=== PATIENT | female | born 1960 | race African-American/Black ===

== ENCOUNTER 2017-03-01 16:57 | Emergency (ER) | payer OTHER ==
[~2017-03-01] VITALS: Ht 175.3 cm; Wt 68.0 kg
[2017-03-01] MEDS ORDERED: PRED20TA PO (17:54)
--- NOTE | 2017-03-01 17:59 | PHYS DOC ---
General Chief Complaint: EYE PROBLEMS Stated Complaint: EYE PROBLEMS Time Seen by MD: 17:27 Source: patient Exam Limitations: no limitations Problems: History of Present Illness Initial Comments Patient is a 56-year-old female who comes to the ED complaining of left I swelling. Patient states that last night she was outdoors and wrote her left leg after a mosquito bite. She states that she then rubbed her left eye. She denies any eye pain foreign body vision change tearing or matting but states she woke up this morning with mild swelling around her eye. She is able to open her eye fully the conjunctiva is not injected and other than the mild swelling patient denies any symptoms. Patient states that she's having allergy symptoms with her left eye. Patient is new to this facility, her speech is tangential and erratic often repeating herself." I'm not crazy, well I am a little. I'm a little paranoid that I have reason to be. I like female doctors. Well I'm not a lesbian or anything but..." It is hard to keep the patient on subject but basically other than the slight swelling patient denies complaints. Patient denies tetracaine and fluorescein evaluation stating as necessary. Visual acuity: 20/20 left eye, 20/15 right eye, 20/20 bilaterally Timing/Duration: yesterday Severity: mild Location: eye (L) Prearrival Treatment: no prearrival treatment Modifying Factors: improves with other Associated Symptoms: other Allergies: Coded Allergies: No Known Drug Allergies (Unverified , 03/01/17) Past Medical History Medical History: no pertinent history Surgical History: noncontributory Social History Smoker: cigarettes Alcohol: occasionally Drugs: none Constitutional: denies chills, denies diaphoresis, denies fever, denies malaise Eyes: see HPI Ears: denies dizziness, denies pain, denies tinnitus Nose: denies congestion, denies epistaxis, denies pain Throat: denies pain, denies neck stiffness, denies hoarse, denies painful swallowing Respiratory: denies cough, denies shortness of breath, denies wheezing Cardiovascular: denies chest pain, denies palpitations, denies syncope Gastrointestinal: denies diarrhea, denies nausea, denies vomiting Physical Exam General Appearance: WD/WN, no apparent distress Eyes: right eye normal inspection, left eye other (very slight periorbital swelling, painless and full extraocular motion the conjunctiva is not injected she can open her eye fully there is no tearing or discharge. Patient again refuses tetracaine/fluorescein eval), bilateral eye PERRL, bilateral eye EOMI Nose: normal inspection Mouth/Throat: normal mouth inspection, pharynx normal Neck: non-tender, supple Cardiovascular/Respiratory: normal peripheral pulses, normal breath sounds, no respiratory distress Neurologic/Psychiatric: hepatology physician II-XII nml as tested, alert, oriented x 3, other ( tangential rambling speech, appears anxious as if on stimulant medications) Skin: normal color, warm/dry Orders, Labs, Meds I discussed empiric treatment for allergies as the only course of treatment patient is agreeable to. She agrees to follow-up with her doctor as scheduled tomorrow morning. Advised to stop smoking. Departure Time of Disposition: 17:55 Disposition: 01 HOME, SELF-CARE Diagnosis: allergic reaction nos Condition: GOOD Patient Instructions: Allergy Testing for Children Additional Instructions: Activity as tolerated. Keep foreign bodies and other substances out of your eyes as best you are able. [id number] Pepcid and Benadryl while still symptomatic. Prescription: prednisone, take as directed. Follow up with your doctor tomorrow as scheduled for recheck. Return to ED with new or changing symptoms. MAKENZIE CABRERA DO Mar 01, 2017 17:58
[2017-03-01] MEDS ORDERED: TETRACAINE 0.5% OPHTH SOLUTION 4ML BOTTLE. OS ONE (18:00)
[2017-03-01 18:03] VITALS: BP 159/87
== END 2017-03-01 18:04 | disposition home or self-care (01) ==
LOC: ER 16:57
DX: T78.40XA Allergy, unspecified, initial encounter (principal); F17.210 Nicotine dependence, cigarettes, uncomplicated; X58.XXXA Exposure to other specified factors, initial encounter
CPT/HCPCS: 99283

== ENCOUNTER → 2017-03-02 | Outpatient (CLI) | payer OTHER ==
[2017-03-01 18:03] VITALS: BP 159/87
[~2017-03-02] MED LIST: PRED20TA PO
--- NOTE | 2017-03-02 15:57 | RAD ---
CHEST PA LATERAL Technique: PA and lateral views of the chest were obtained. Clinical History: CHRONIC COUGH FOR SEVERAL MONTHS Comparison: None. Findings: The heart and pulmonary vasculature appear within normal limits. The lungs are clear. The pleural margins are clear. Mild degenerative changes thoracic spine. Impression: No acute chest process is seen.
== END | disposition home or self-care (01) ==
LOC: DXRADRC 12:47
PROVIDERS: ATTEND Family Medicine
DX: R05 Cough (principal); M47.894 Other spondylosis, thoracic region
CPT/HCPCS: 71020

== ENCOUNTER 2017-07-12 11:51 | Emergency (ER) | payer OTHER ==
[~2017-07-12] VITALS: Ht 175.3 cm; Wt 65.8 kg
[2017-07-12] MEDS ORDERED: CEPH-264 PO (12:19)
[2017-07-12] MEDS ORDERED: TRAM-48 PO (12:19)
--- NOTE | 2017-07-12 12:19 | PHYS DOC ---
Past History Past Medical History: No Pertinent History, Hypertension Past Surgical History: No Surgical History Alcohol Use: Occasionally Drug Use: None Adult General Chief Complaint Chief Complaint: DENTAL PROBLEM HPI HPI Patient is a 49-year-old female who presents here today secondary to pain to her teeth as well as swelling to her left upper cheek. Patient reports that she has had a dentist that she is not happy with the dentist preceded not remove all her teeth. Patient reports that she is currently in the process of obtaining another dentist. Patient has any fevers shakes chills nausea vomiting diarrhea. Review of Systems Review of Systems Review of systems: Constitutional: Denies fever or chills Eyes: Denies change in visual acuity, redness, or eye pain HENT: Denies nasal congestion or sore throat Respiratory: Denies cough or shortness of breath All other systems were reviewed and found to be within normal limits, except as documented in this note. Physical exam: Constitutional: Well developed, well nourished, no acute distress, non-toxic appearance. HENT: Normocephalic, atraumatic, bilateral external ears normal, nose normal. Eyes: PERRLA, EOMI, conjunctiva normal, no discharge. Neck: Normal range of motion, no tenderness, supple, no stridor. Cardiovascular: Heart rate regular rhythm, Lungs & Thorax: Bilateral breath sounds clear to auscultation Abdomen: No abdominal distention. Skin: Warm, dry, no erythema, no rash. Back: Normal spinal curvature Extremities: No tenderness, no cyanosis, no clubbing, ROM intact, no edema. Neurologic: Alert and oriented X 3, normal motor function, normal sensory function, no focal deficits noted. Psychologic: Affect normal, judgement normal, mood normal. Patient's ER physical exam was most remarkable: Soft tissue swelling to her left cheek with soft tissue fullness to her left upper premolar molar gum. No fluctuance no trismus Assessment and plan: 1. Micro-dental abscess with dental pain and soft tissue swelling. Patient will get started on penicillin Ultram and ibuprofen assist her with her pain. Patient's been encouraged to follow-up with a dentist within the next 1-2 days. Allergies Allergies Allergies Coded Allergies Type Severity Reaction Last Updated Verified No Known Drug Allergies 03/01/17 No Physical Exam Physical Exam Constitutional: Well developed, well nourished, no acute distress, non-toxic appearance. [] HENT: Normocephalic, atraumatic, bilateral external ears normal, oropharynx moist, no oral exudates, nose normal. [] Eyes: PERRLA, EOMI, conjunctiva normal, no discharge. [] Neck: Normal range of motion, no tenderness, supple, no stridor. [] Cardiovascular:Heart rate regular rhythm, no murmur [] Lungs & Thorax: Bilateral breath sounds clear to auscultation [] Abdomen: Bowel sounds normal, soft, no tenderness, no masses, no pulsatile masses. [] Skin: Warm, dry, no erythema, no rash. [] Back: No tenderness, no CVA tenderness. [] Extremities: No tenderness, no cyanosis, no clubbing, ROM intact, no edema. [] Neurologic: Alert and oriented X 3, normal motor function, normal sensory function, no focal deficits noted. [] Psychologic: Affect normal, judgement normal, mood normal. [] Current Patient Data Vital Signs Vital Signs Date Time Temp Pulse Resp B/P (MAP) Pulse Ox O2 Delivery O2 Flow Rate FiO2 07/12/17 12:12 98.1 90 22 96 Room Air EKG EKG [] Radiology/Procedures Radiology/Procedures [] Course & Med Decision Making Course & Med Decision Making Pertinent Labs and Imaging studies reviewed. (See chart for details) [] Dragon Disclaimer Dragon Disclaimer This electronic medical record was generated, in whole or in part, using a voice recognition dictation system. Departure Departure: Impression: Primary Impression: Dental infection Additional Impression: Dental caries Disposition: 01 HOME, SELF-CARE Condition: IMPROVED Referrals: DEQUAN NEGRON APRN (PCP) Patient Instructions: Dental Abscess, Dental Caries, Toothache-Brief Additional Instructions: Please follow up with a dentist in one to 2 days for reevaluation and permanent management Scripts Tramadol Hcl (ULTRAM) 50 Mg Tablet 50 MG PO PRN Q6HRS Y for PAIN, #20 TAB Prov: VALERIE RADFORD MD 07/12/17 Cephalexin (KEFLEX) 500 Mg Capsule 1 CAP PO TID, #30 CAP Prov: VALERIE RADFORD MD 07/12/17 Problem Qualifiers VALERIE RADFORD MD Jul 12, 2017 12:19
[2017-07-12 12:34] VITALS: BP 191/99
== END 2017-07-12 12:34 | disposition home or self-care (01) ==
LOC: ER 11:51
DX: K02.9 Dental caries, unspecified (principal); K04.7 Periapical abscess without sinus; I10 Essential (primary) hypertension
CPT/HCPCS: 99283

== ENCOUNTER 2019-07-23 15:11 | Emergency (ER) | payer OTHER ==
[~2019-07-23] VITALS: Ht 175.3 cm; Wt 68.0 kg
[~2019-07-23 15:11] MED LIST changes: +CEPH-264 PO; +TRAM-48 PO
[2019-07-23 15:29] VITALS: BP 131/93
[2019-07-23] MEDS ORDERED: CHLO15MO2 PO (15:44)
[2019-07-23] MEDS ORDERED: AMOX1TAB61 PO (15:44)
[2019-07-23] MEDS ORDERED: PRED20TA PO (15:44)
[2019-07-23] MEDS ORDERED: DIPH25CA58 PO (15:44)
--- NOTE | 2019-07-23 15:44 | PHYS DOC ---
Past History Past Medical History: Hypertension Past Surgical History: No Surgical History Alcohol Use: Occasionally Drug Use: None Adult General Chief Complaint Chief Complaint: FACE PAIN HPI HPI Patient is a [age] year old [sex] who presents with [] Review of Systems Review of Systems Constitutional: Denies fever or chills [] Eyes: Denies change in visual acuity, redness, or eye pain [] HENT: Denies nasal congestion or sore throat [] Respiratory: Denies cough or shortness of breath [] Cardiovascular: No additional information not addressed in HPI [] GI: Denies abdominal pain, nausea, vomiting, bloody stools or diarrhea [] : Denies dysuria or hematuria [] Musculoskeletal: Denies back pain or joint pain [] Integument: Denies rash or skin lesions [] Neurologic: Denies headache, focal weakness or sensory changes [] Endocrine: Denies polyuria or polydipsia [] All other systems were reviewed and found to be within normal limits, except as documented in this note. Allergies Allergies Allergies Coded Allergies Type Severity Reaction Last Updated Verified No Known Drug Allergies 03/01/17 No Physical Exam Physical Exam Constitutional: Well developed, well nourished, no acute distress, non-toxic appearance. [] HENT: Normocephalic, atraumatic, bilateral external ears normal, oropharynx moist, no oral exudates, nose normal. [] Eyes: PERRLA, EOMI, conjunctiva normal, no discharge. [] Neck: Normal range of motion, no tenderness, supple, no stridor. [] Cardiovascular:Heart rate regular rhythm, no murmur [] Lungs & Thorax: Bilateral breath sounds clear to auscultation [] Abdomen: Bowel sounds normal, soft, no tenderness, no masses, no pulsatile masses. [] Skin: Warm, dry, no erythema, no rash. [] Back: No tenderness, no CVA tenderness. [] Extremities: No tenderness, no cyanosis, no clubbing, ROM intact, no edema. [] Neurologic: Alert and oriented X 3, normal motor function, normal sensory function, no focal deficits noted. [] Psychologic: Affect normal, judgement normal, mood normal. [] Current Patient Data Vital Signs Vital Signs Date Time Temp Pulse Resp B/P (MAP) Pulse Ox O2 Delivery O2 Flow Rate FiO2 07/23/19 15:29 98.3 98 16 131/93 (106) 98 Room Air EKG EKG [] Radiology/Procedures Radiology/Procedures [] Course & Med Decision Making Course & Med Decision Making Pertinent Labs and Imaging studies reviewed. (See chart for details) [] Dragon Disclaimer Dragon Disclaimer This electronic medical record was generated, in whole or in part, using a voice recognition dictation system. Departure Departure: Impression: Primary Impression: Cervical lymphadenopathy Additional Impressions: URI (upper respiratory infection) Dental caries Contact dermatitis Disposition: HOME, SELF-CARE Condition: STABLE Referrals: PCP,NO (PCP) Patient Instructions: Contact Dermatitis, [id number], Dental Caries-Brief, Upper Respiratory Infection, Adult, [id number] Scripts Diphenhydramine Hcl (BENADRYL) 25 Mg Capsule 1 CAP PO Q4-6HRS PRN for ITCHING, #30 CAP 0 Refills Prov: NADYA MENA DO 07/23/19 Chlorhexidine Gluconate (PERIDEX) 15 Ml Mouthwash 15 ML PO BID for Dental Caries, #500 ML 0 Refills Prov: NADYA MENA DO 07/23/19 Prednisone (PREDNISONE) 20 Mg Tablet 2 TAB PO DAILY for Rash/Swelling, #8 TAB Start this prescription tomorrow, 07/24/19 Prov: NADYA MENA DO 07/23/19 Amoxicillin/Potassium Clav (AUGMENTIN 875-125 TABLET) 1 Each Tablet 1 TAB PO BID for Infection for 7 Days, #14 TAB 0 Refills Prov: NADYA MENA DO 07/23/19 Problem Qualifiers Additional Impressions: URI (upper respiratory infection) URI type: unspecified URI Qualified Codes: J06.9 - Acute upper respiratory infection, unspecified Contact dermatitis Contact dermatitis type: allergic Contact dermatitis trigger: metal Qualified Codes: L23.0 - Allergic contact dermatitis due to metals NADYA MENA DO Jul 23, 2019 15:44
[2019-07-23] MEDS ORDERED: AMOXICILLIN/K CLAV 875/125MG TABLET. PO ONE (15:45)
[2019-07-23] MEDS ORDERED: DEXAMETHASONE 4 MG TABLET PO ONE (15:45)
== END 2019-07-23 15:52 | disposition home or self-care (01) ==
LOC: ER 15:11
DX: R59.0 Localized enlarged lymph nodes (principal); J06.9 Acute upper respiratory infection, unspecified; K02.9 Dental caries, unspecified; L25.9 Unspecified contact dermatitis, unspecified cause; I10 Essential (primary) hypertension
CPT/HCPCS: 99283; J8540

== ENCOUNTER 2019-11-15 18:06 | Emergency (ER) | payer OTHER ==
[~2019-11-15] VITALS: Ht 175.3 cm; Wt 70.0 kg
[~2019-11-15 18:06] MED LIST changes: +AMOX1TAB61 PO; +CHLO15MO2 PO; +DIPH25CA58 PO
--- NOTE | 2019-11-15 18:15 | PHYS DOC ---
Past History Past Medical History: Anxiety, Bronchitis, Hypertension Past Medical History Hx of dental caries Past Surgical History: No Surgical History Smoking: Cigarettes Alcohol Use: Occasionally Drug Use: None General Adult HPI: HPI: "...I got to get these teeth out... '".. I a hurting so back..with these Lt upper...I an't got many left.. I am going to get them all out...." Patient is a 59 year old female who presents with above hx and complaints multiple areas of dental pain. Most tender tonight is area 10, 11. Pain radiates into Lt maxillary sinus. Patient denies any fever or chills. There is no pointing abscess. There is no trismus. Patient denies any immunosuppression. No recent travel outside the [place] area. No specific ill contacts. Patient does smoke. Review of Systems: Review of Systems: Constitutional: Denies fever or chills Eyes: Denies change in visual acuity HENT: Complains of severe dental pain radiating into the left maxillary sinus area Respiratory: Denies cough or shortness of breath Cardiovascular: Denies chest pain or edema GI: Denies abdominal pain, nausea, vomiting, bloody stools or diarrhea : Denies dysuria Musculoskeletal: Denies back pain or joint pain Integument: Denies rash Neurologic: Denies headache, focal weakness or sensory changes Endocrine: Denies polyuria or polydipsia Lymphatic: Denies swollen glands Psychiatric: Denies depression or anxiety Heart Score: Risk Factors: Risk Factors: DM, Current or recent (<one month) smoker, HTN, HLP, family history of CAD, obesity. Risk Scores: Score 0 - 3: 2.5% MACE over next 6 weeks - Discharge Home Score 4 - 6: 20.3% MACE over next 6 weeks - Admit for Clinical Observation Score 7 - 10: 72.7% MACE over next 6 weeks - Early Invasive Strategies Family History: Family History: Noncontributory Current Medications: Current Meds: See nurse for details Allergies: Allergies: Allergies Coded Allergies Type Severity Reaction Last Updated Verified No Known Drug Allergies 03/01/17 No Physical Exam: PE: Constitutional: Moderate acute distress, non-toxic appearance. [] Patient reports pain is relatively severe tonight. HENT: Normocephalic, atraumatic, bilateral external ears normal, oropharynx moist, no oral exudates, nose normal. Multiple areas of dental decay and missing teeth. Patient is no longer able to wear her dental braces Eyes: PERRLA, EOMI, conjunctiva normal, no discharge. [] Neck: Normal range of motion, no tenderness, supple, no stridor. [] Cardiovascular:Heart rate regular rhythm, no murmur [] Lungs & Thorax: Bilateral breath sounds equal apex of scattered wheezes on auscultation [] Abdomen: Bowel sounds normal, soft, no tenderness, no masses, no pulsatile masses. Old scar Skin: Warm, dry, no erythema, no rash. [] Back: No tenderness, no CVA tenderness. [] Extremities: No tenderness, no cyanosis, no clubbing, ROM intact, no edema. [] Neurologic: Alert and oriented X 3, normal motor function, normal sensory function, no focal deficits noted. [] Psychologic: Affect anxious, judgement normal, mood normal. [] EKG: EKG: [] Radiology/Procedures: Radiology/Procedures: [] Course & Med Decision Making: Course & Med Decision Making Pertinent Labs and Imaging studies reviewed. (See chart for details) Patient must follow-up with a dentist or oral surgeon. Most likely will need extraction of the offending teeth. Take Keflex 500 mg 3 times a day. Take Tylenol and ibuprofen with for pain. Return if any concerns. Patient encouraged to stop smoking. Impression: 1. Chronic dental pain with recent exacerbation 2. Tobacco use 3. History of anxiety disorder 4. History of bipolar [] Dragon Disclaimer: Dragon Disclaimer: This electronic medical record was generated, in whole or in part, using a voice recognition dictation system. Departure Departure: Disposition: 01 HOME/RESIDENCE PRIOR TO ADM Condition: STABLE Referrals: PCP,NO (PCP) Scripts Cephalexin (KEFLEX) 500 Mg Capsule 500 MG PO TID for dental infection for 10 Days, BOTTLE Prov: JOSE SIDHU MD 11/15/19 Mehnaz Disclaimer This chart was dictated in whole or in part using Voice Recognition software in a busy, high-work load, and often noisy Emergency Department environment. It may contain unintended and wholly unrecognized errors or omissions. Dragon Disclaimer This chart was dictated in whole or in part using Voice Recognition software in a busy, high-work load, and often noisy Emergency Department environment. It may contain unintended and wholly unrecognized errors or omissions. JOSE SIDHU MD November 15, 2019 18:15
[2019-11-15] MEDS ORDERED: CEPH-264 PO (18:30)
[2019-11-15] MEDS ORDERED: KETOROLAC 60 MG/2 ML VIAL. IM ONE (19:00)
[2019-11-15] MEDS ORDERED: cefTRIAXone IM 1 GM VIAL IM ONE (19:00)
[2019-11-15] MEDS ORDERED: cefTRIAXone SODIUM 1 GM VIAL ONE (19:02)
[2019-11-15 19:35] VITALS: BP 161/93
== END 2019-11-15 19:40 | disposition home or self-care (01) ==
LOC: ER 18:06
DX: G89.29 Other chronic pain (principal); K02.9 Dental caries, unspecified; K08.89 Other specified disorders of teeth and supporting structures; F41.9 Anxiety disorder, unspecified; F31.9 Bipolar disorder, unspecified; I10 Essential (primary) hypertension; F17.210 Nicotine dependence, cigarettes, uncomplicated
CPT/HCPCS: 96372; 99284; J0696; J1885

== ENCOUNTER 2020-10-18 14:58 | Emergency (ER) | payer OTHER ==
[~2020-10-18] VITALS: Ht 172.7 cm; Wt 63.6 kg
[2020-10-18 15:17] VITALS: BP 161/93
[2020-10-18] MEDS ORDERED: IOHEXOL 300 MG/ML 75 ML VIAL. IV ONE (15:45)
[2020-10-18] MEDS ORDERED: IV NORMAL SALINE 1,000ML 1,000 ML IV ONE (15:45)
[2020-10-18 15:47] LABS: CLARITY,URINE CLEAR; COLOR,URINE YELLOW
[2020-10-18 15:48] LABS: BILIRUBIN,URINE NEG (NEG); GLUCOSE,URINE NEG (NEG); NITRITE,URINE NEG (NEG); UROBILINOGEN,URINE 0.2 mg/dL (0.2 mg/dL)
[2020-10-18 15:49] LABS: BACTERIA,URINE 0 /HPF (0-FEW); RBC,URINE 0 /HPF (0-2); SQUAMOUS EPITHELIAL CELL,UR OCC /LPF; WBC,URINE 0 /HPF (0-4)
--- NOTE | 2020-10-18 15:49 | PHYS DOC ---
Past History Past Medical History: Anxiety, Bronchitis, Hypertension Past Surgical History: No Surgical History Smoking: Cigarettes Alcohol Use: Occasionally Drug Use: None General Adult EDM: Chief Complaint: URINARY FREQUENCY HPI: HPI: 60-year-old female presents with lower abdominal pain, increased urinary f requency, occasional rectal bleeding, and a mass in the right side of her neck. The patient's primary concern was that she has had increased urinary frequency 2 or 3 weeks. She does not really have pain, just frequency and urgency. She also has intermittent lower abdominal cramping but is tolerable but occurs daily. She further complains that she occasionally has some rectal bleeding with bowel movements. She has been taking prune juice and having bowel movements daily. She does not know if she is constipated. She admits that she has never had a colonoscopy and she is a cigarette smoker. Patient also has daily mass in the anterior cervical lymph node on the right just below her ear. She states that this is new and only been there a few days. She denies fever or chills. Review of Systems: Review of Systems: Constitutional: Denies fever or chills Eyes: Denies change in visual acuity HENT: swollen neck Respiratory: Denies cough or shortness of breath Cardiovascular: Denies chest pain or edema GI: Lower abdominal pain. Denies nausea, vomiting, bloody stools or diarrhea : Denies dysuria. Increased urinary frequency and urgency. Musculoskeletal: Denies back pain or joint pain Integument: Denies rash Neurologic: Denies headache, focal weakness or sensory changes Endocrine: Denies polyuria or polydipsia Lymphatic: Swollen right cervical lymph node Psychiatric: Denies depression or anxiety Allergies: Allergies: Allergies Coded Allergies Type Severity Reaction Last Updated Verified No Known Drug Allergies 03/01/17 No Physical Exam: PE: Constitutional: Well developed, well nourished, no acute distress, non-toxic appearance. [] HENT: Normocephalic, atraumatic, bilateral external ears normal, oropharynx moist, no oral exudates, nose normal. [] Eyes: PERRLA, EOMI, conjunctiva normal, no discharge. [] Neck: Normal range of motion, no tenderness, supple, no stridor. Firm 2cm mass right anterior cervical chain [] Cardiovascular: Heart rate regular rhythm, no murmur [] Lungs & Thorax: Bilateral breath sounds clear to auscultation [] Abdomen: Bowel sounds normal, soft, mild lower abdominal tenderness, no masses, no pulsatile masses. [] Skin: Warm, dry, no erythema, no rash. [] Back: No tenderness, no CVA tenderness. [] Extremities: No tenderness, no cyanosis, no clubbing, ROM intact, no edema. [] Neurologic: Alert and oriented X 3, normal motor function, normal sensory function, no focal deficits noted. [] Psychologic: Affect normal, judgement normal, mood anxious. [] Current Patient Data: Vital Signs: Vital Signs Date Time Temp Pulse Resp B/P (MAP) Pulse Ox O2 Delivery O2 Flow Rate FiO2 10/18/20 15:17 98.3 78 16 161/93 (115) 93 Room Air EKG: EKG: [] Radiology/Procedures: Radiology/Procedures: [] Impressions: Exam: CT neck with contrast INDICATION: Right palpable lump on neck TECHNIQUE: Sequential axial images through the neck obtained following the administration of 70 mL of Isovue-370 IV contrast. Sagittal and coronal reformatted images were reconstructed from the axial data and reviewed. Exposure: One or more of the following in the visualized dose reduction techniques were utilized for this examination: 1. Automated exposure control 2. Adjustment of the MA and/or KV according to patient size 3. Use of iterative of reconstructive technique Comparisons: None FINDINGS: Visualized intracranial structures are unremarkable. Globes and intraorbital contents are normal. Visualized paraspinal sinuses are unremarkable. Nasopharynx, oropharynx, hypopharynx and larynx are unremarkable. Cervical vasculature is patent. Thyroid and salivary glands are within normal limits. The BB is seen overlying the right parotid gland. No intraparotid mass identified. No enlarged cervical lymph nodes are identified. Moderate centrilobular emphysematous change noted the upper lungs. No suspicious osseous lesions or acute fractures. IMPRESSION: 1. The surface marker overlies the right parotid gland. No discrete parotid mass or intraparotid lymph nodes are identified. 2. There are a few prominent but not enlarged right level 1 lymph nodes, nonspecific could be reactive. Electronically signed by: Emily Ferrera MD (10/18/2020 4:39 PM) [facility] DICTATED AND SIGNED BY: EMILY FERRERA MD DATE: 10/18/20 [id number] CC: MIGUEL ANGEL SALAZAR DO; PCP,NO ~MTH0 0 Exam: CT of abdomen and pelvis with contrast INDICATION: Lower abdominal pain TECHNIQUE: Sequential axial images through the abdomen and pelvis obtained following the administration of 75 mL of Isovue-370 IV contrast. Sagittal and coronal reformatted images were reconstructed from the axial data and reviewed. Exposure: One or more of the following in the visualized dose reduction techniques were utilized for this examination: 1. Automated exposure control 2. Adjustment of the MA and/or KV according to patient size 3. Use of iterative of reconstructive technique Comparisons: None FINDINGS: Heart size is normal. No pericardial effusion. Visualized lung bases are clear. No pleural effusion. Liver, spleen, pancreas, gallbladder and adrenals are unremarkable. No perinephric inflammation or hydronephrosis. No renal or ureteral calculi are identified. Bladder is partially distended and not well evaluated. Uterus is absent. No abnormal adnexal mass. Large and small bowel are unremarkable. Appendix is normal. No free intra- abdominal air or fluid. No obstruction. Abdominal aorta has a normal course and caliber. There is atherosclerotic plaque noted diffusely throughout the abdominal aorta. No enlarged intra-abdominal lymph nodes are identified. No suspicious osseous lesions or acute fractures. IMPRESSION: 1. Large amount of stool is noted in the descending and sigmoid colon. Correlate for constipation. 2. Calcified and noncalcified atherosclerotic plaque noted throughout the abdominal aorta which has an ectatic appearance measuring up to 2.7 cm in diameter. Electronically signed by: Emily Ferrera MD (10/18/2020 4:46 PM) [facility] DICTATED AND SIGNED BY: EMILY FERRERA MD DATE: 10/18/20 [id number] CC: MIGUEL ANGEL SALAZAR DO; PCP,NO ~MTH0 0 Heart Score: C/O Chest Pain: No Risk Factors: Risk Factors: DM, Current or recent (<one month) smoker, HTN, HLP, family history of CAD, obesity. Risk Scores: Score 0 - 3: 2.5% MACE over next 6 weeks - Discharge Home Score 4 - 6: 20.3% MACE over next 6 weeks - Admit for Clinical Observation Score 7 - 10: 72.7% MACE over next 6 weeks - Early Invasive Strategies Course & Med Decision Making: Course & Med Decision Making Pertinent Labs and Imaging studies reviewed. (See chart for details) The patient's labs are unremarkable. Her urinalysis is negative for infection. The CT of her neck shows no masses. There are some nodes that are still within normal limits. See official read for more details. CT of the abdomen pelvis shows large amount of stool in the descending and sigmoid colon. This could be causing the patient's discomfort. There is also atherosclerotic plaque of the abdominal aorta. See official read for more details. Admit the patient aware of these results. I have advised magnesium citrate for bowel cleanout. Number also strongly advised that she establish with a primary care physician to follow-up on these other issues. She also needs to quit smoking. Patient states verbal understanding. She is stable for discharge at this time. [] Dragon Disclaimer: Dragon Disclaimer: This electronic medical record was generated, in whole or in part, using a voice recognition dictation system. Departure Departure: Impression: Primary Impression: Constipation Qualified Codes: K59.00 - Constipation, unspecified Additional Impressions: Atherosclerosis of abdominal aorta Lymphadenopathy of right cervical region Disposition: HOME / SELF CARE / HOMELESS Condition: STABLE Referrals: PCPZACHARY (PCP) Patient Instructions: Atherosclerosis, Constipation, Adult, [id number] MIGUEL ANGEL SALAZAR DO October 18, 2020 15:49
[2020-10-18 16:01] LABS: BASO # 0.1 x10^3/uL (0.0-0.2); BASO % 1 % (0-3); EOS # 0.1 x10^3/uL (0.0-0.7); EOS % 1 % (0-3); LYMPH # 2.6 x10^3/uL (1.0-4.8); LYMPH % 32 % (24-48); MEAN CORPUSCULAR HEMOGLOBIN 29 pg (25-35); MEAN CORPUSCULAR HGB CONC 33 g/dL (31-37); MEAN CORPUSCULAR VOLUME 88 fL (79-100); MONO # 0.5 x10^3/uL (0.0-1.1); MONO % 6 % (0-9); NEUT # 4.8 x10^3uL (1.8-7.7); NEUT % 60 % (31-73); PLATELET COUNT 239 x10^3/uL (140-400); RED BLOOD COUNT 4.91 x10^6/uL (3.50-5.40); RED CELL DISTRIBUTION WIDTH 14.4 % (11.5-14.5); WHITE BLOOD COUNT 8.1 x10^3/uL (4.0-11.0)
[2020-10-18 16:07] LABS: CALCIUM 9.2 mg/dL (8.5-10.1); CREATININE 0.6 mg/dL (0.6-1.0); POTASSIUM 3.8 mmol/L (3.5-5.1)
[2020-10-18 16:14] LABS: ALBUMIN 3.6 g/dL (3.4-5.0); TOTAL BILIRUBIN 0.2 mg/dL (0.2-1.0); TOTAL PROTEIN 7.2 g/dL (6.4-8.2)
--- NOTE | 2020-10-18 16:42 | RAD ---
Exam: CT neck with contrast INDICATION: Right palpable lump on neck TECHNIQUE: Sequential axial images through the neck obtained following the administration of 70 mL of Isovue-370 IV contrast. Sagittal and coronal reformatted images were reconstructed from the axial da ta and reviewed. Exposure: One or more of the following in the visualized dose reduction techniques were utilized for this examination: 1. Automated exposure control 2. Adjustment of the MA and/or KV according to patient size 3. Use of iterative of reconstructive technique Comparisons: None FINDINGS: Visualized intracranial structures are unremarkable. Globes and intraorbital contents are normal. Vis ualized paraspinal sinuses are unremarkable. Nasopharynx, oropharynx, hypopharynx and larynx are unremarkable. Cervical vasculature is patent. Thyroid and salivary glands are within normal limits. The BB is seen overlying the right parotid gland. No intraparotid mass identified. No enlarged cervical lymph nodes are identified. Moderate centrilobular emphysematous change noted the upper lungs. No suspicious osseous lesions or acute fractures. IMPRESSION: 1. The surface marker overlies the right parotid gland. No discrete parotid mass or intraparotid lym ph nodes are identified. 2. There are a few prominent but not enlarged right level 1 lymph nodes, nonspecific could be reacti ve. Electronically signed by: Zane Levy MD (10/18/2020 4:39 PM) [facility]
--- NOTE | 2020-10-18 16:49 | RAD ---
Exam: CT of abdomen and pelvis with contrast INDICATION: Lower abdominal pain TECHNIQUE: Sequential axial images through the abdomen and pelvis obtained following the administrati on of 75 mL of Isovue-370 IV contrast. Sagittal and coronal reformatted images were reconstructed fro m the axial data and reviewed. Exposure: One or more of the following in the visualized dose reduction techniques were utilized for this examination: 1. Automated exposure control 2. Adjustment of the MA and/or KV according to patient size 3. Use of iterative of reconstructive technique Comparisons: None FINDINGS: Heart size is normal. No pericardial effusion. Visualized lung bases are clear. No pleural effusion. Liver, spleen, pancreas, gallbladder and adrenals are unremarkable. No perinephric inflammation or hydronephrosis. No renal or ureteral calculi are identified. Bladder is partially distended and not well evaluated. Uterus is absent. No abnormal adnexal mass. Large and small bowel are unremarkable. Appendix is normal. No free intra-abdominal air or fluid. No obstruction. Abdominal aorta has a normal course and caliber. There is atherosclerotic plaque noted diffusely thro ughout the abdominal aorta. No enlarged intra-abdominal lymph nodes are identified. No suspicious osseous lesions or acute fractures. IMPRESSION: 1. Large amount of stool is noted in the descending and sigmoid colon. Correlate for constipation. 2. Calcified and noncalcified atherosclerotic plaque noted throughout the abdominal aorta which has an ectatic appearance measuring up to 2.7 cm in diameter. Electronically signed by: Zane Levy MD (10/18/2020 4:46 PM) [facility]
[2020-10-18] MEDS ORDERED: MAGNESIUM CITRATE 296 ML SOLUTION. PO ONE (17:30)
== END 2020-10-18 17:38 | disposition home or self-care (01) ==
LOC: ER 14:58
DX: K59.00 Constipation, unspecified (principal); I70.0 Atherosclerosis of aorta; R59.0 Localized enlarged lymph nodes; R35.0 Frequency of micturition; K62.5 Hemorrhage of anus and rectum; F41.9 Anxiety disorder, unspecified; I10 Essential (primary) hypertension; F17.210 Nicotine dependence, cigarettes, uncomplicated
CPT/HCPCS: 36415; 70491; 74177; 80053; 81001; 85025; 96360; 99285; J7030; Q9967

== ENCOUNTER 2020-10-24 16:28 | Emergency (ER) | payer OTHER ==
[~2020-10-24] VITALS: Ht 165.1 cm; Wt 65.0 kg
[2020-10-24 16:41] VITALS: BP 137/80
[2020-10-24] MEDS ORDERED: METH4TAB2 PO (16:55)
--- NOTE | 2020-10-24 16:55 | PHYS DOC ---
Past History Past Medical History: No Pertinent History Past Surgical History: No Surgical History Smoking: Cigarettes Alcohol Use: None Drug Use: None General Adult EDM: Chief Complaint: ITCHING HPI: HPI: Patient is a 60-year-old female coming in for diffuse rash. Patient states she had a small rash with bumps on her right forearm after gardening yesterday. Was at a friend's house sitting on the new couch when she noticed some rash to her back yesterday there was itching. Is now she has the rash spread to both upper extremities, trunk, small amount on legs. Says it she is took 3 Benadryl earlier without improvement. Denies any other known history. Unsure if she was exposed to poison joel but did not notice seeing any. No other new detergents or soaps at home. Review of Systems: Review of Systems: All other systems within normal limits except for as noted in the HPI Allergies: Allergies: Allergies Coded Allergies Type Severity Reaction Last Updated Verified No Known Drug Allergies 03/01/17 No Physical Exam: PE: Constitutional: Well developed, well nourished, no acute distress, non-toxic appearance. [] HENT: Normocephalic, atraumatic, bilateral external ears normal, nose normal. [] Eyes: PERRLA, conjunctiva normal, no discharge. [] Neck: No rigidity, supple, no stridor. [] Cardiovascular: Regular rate and rhythm, brisk cap refill [] Lungs & Thorax: Non labored symmetric respirations, no tachypnea or respiratory distress [] Abdomen: Soft, nondistended. Skin: Warm, dry, no excoriations, urticarial rash on bilateral upper extremities, chest, stomach and back.] Back: Unremarkable Extremities: No deformities, range of motion grossly intact, no lower extremity edema [] Neurologic: Alert and oriented X 3, no focal deficits noted. [] Psychologic: Affect normal, judgement normal, mood normal. [] Current Patient Data: Vital Signs: Vital Signs Date Time Temp Pulse Resp B/P (MAP) Pulse Ox O2 Delivery O2 Flow Rate FiO2 10/24/20 16:41 98.4 84 16 137/80 (99) 95 Room Air EKG: EKG: [] Radiology/Procedures: Radiology/Procedures: [] Heart Score: C/O Chest Pain: No Risk Factors: Risk Factors: DM, Current or recent (<one month) smoker, HTN, HLP, family history of CAD, obesity. Risk Scores: Score 0 - 3: 2.5% MACE over next 6 weeks - Discharge Home Score 4 - 6: 20.3% MACE over next 6 weeks - Admit for Clinical Observation Score 7 - 10: 72.7% MACE over next 6 weeks - Early Invasive Strategies Course & Med Decision Making: Course & Med Decision Making Pertinent Labs and Imaging studies reviewed. (See chart for details) [] Dragon Disclaimer: Dragon Disclaimer: This electronic medical record was generated, in whole or in part, using a voice recognition dictation system. Departure Departure: Impression: Primary Impression: Urticarial dermatitis Additional Impression: Contact dermatitis Disposition: 07 LEFT AWOL/ELOPED Condition: STABLE Referrals: PCP,NO (PCP) Patient Instructions: Contact Dermatitis Scripts Methylprednisolone (MEDROL) 4 Mg Tab.ds.pk 1 PKG PO UD for steroid, #1 PKG Prov: LAURI RAMIREZ MD 10/24/20 LAURI RAMIREZ MD October 24, 2020 16:55
[2020-10-24] MEDS ORDERED: DEXAMETHASONE SOD PHOS 10 MG/ML VIAL. IM ONE (17:00)
[2020-10-24] MEDS ORDERED: diphenhydrAMINE 50 MG/ML VIAL IM ONE (17:00)
[2020-10-24] MEDS ORDERED: PROCHLORPERAZINE 10 MG/2 ML VIAL. IV ONE (17:15)
== END 2020-10-24 17:23 | disposition left against medical advice (07) ==
LOC: ER 16:28
DX: L50.8 Other urticaria (principal); L25.9 Unspecified contact dermatitis, unspecified cause; F17.210 Nicotine dependence, cigarettes, uncomplicated
CPT/HCPCS: 96372; 99284; J1100; J1200

== ENCOUNTER 2021-04-27 21:28 | Emergency (ER) | payer OTHER ==
[~2021-04-27] VITALS: Ht 165.1 cm; Wt 56.0 kg
[2021-04-27 21:28] VITALS: BP 213/108
[~2021-04-27 21:28] MED LIST changes: +METH4TAB2 PO
[2021-04-27] MEDS ORDERED: AMOX1TAB61 PO (21:53)
--- NOTE | 2021-04-27 21:54 | PHYS DOC ---
Past History Past Medical History: No Pertinent History (DECLAN DOWNS) Past Surgical History: No Surgical History (DECLAN DOWNS) Smoking: Cigarettes Alcohol Use: None Drug Use: None (DECLAN DOWNS) General Adult EDM: Chief Complaint: DENTAL PROBLEM HPI: HPI: Patient is a 61 year old female who presents with dental pain and facial swelling. Patient states that she has had poor dentition for several years, and was given a bridge 7-8 years ago. Currently, the bridge irritates her gums significantly. Additionally, she had one of her remaining teeth split and break off. She believes this is the source of her current pain and swelling. Patient denies fevers, chills, eye pain. (DECLAN DOWNS) Review of Systems: Review of Systems: ROS negative except as mentioned in HPI. (DECLAN DOWNS) Allergies: Allergies: Allergies Coded Allergies Type Severity Reaction Last Updated Verified No Known Drug Allergies 03/01/17 No (DECLAN DOWNS) Physical Exam: PE: Constitutional: Well developed, well nourished, no acute distress, non-toxic appearance. HENT: Normocephalic, atraumatic, left-sided upper lip swelling extending just lateral to the left side of nose, bilateral external ears normal, oropharynx moist, patient is missing most of her dentition, what remains is in poor health, multiple erythematous sites noted on upper gums, tooth broken at base on upper left with surrounding erythema, nose normal. Eyes: PERRLA, EOMI, conjunctiva normal, no discharge, no periorbital swelling. Neck: Normal range of motion, no tenderness, supple, no stridor. Cardiovascular: Heart rate regular rhythm, no murmur. Lungs & Thorax: Bilateral breath sounds clear to auscultation. (DECLAN DOWNS) Current Patient Data: Vital Signs: VS - Last 72 Hours, by Label Date Time Temp Pulse Resp B/P (MAP) Pulse Ox O2 Delivery O2 Flow Rate FiO2 04/27/21 21:28 98.2 96 18 213/108 (143) 99 Room Air (DECLAN DOWNS) Heart Score: C/O Chest Pain: No (DECLAN DOWNS) Course & Med Decision Making: Course & Med Decision Making Pertinent Labs and Imaging studies reviewed. (See chart for details) Patient's broken tooth is definitely showing signs of infection. Patient will be discharged home with antibiotics. She is comfortable using [id number] Aleve for pain control. Discussed with patient that dental infections are easily spread to the heart, which can cause endocarditis. Patient has been provided with a list of community resources, including dental clinics in the area. Patient understands and is agreeable to discharge plan. (DECLAN DOWNS) Dragon Disclaimer: Dragon Disclaimer: This electronic medical record was generated, in whole or in part, using a voice recognition dictation system. (DECLAN DOWNS) Departure Departure: Impression: Primary Impression: Infected dental caries Additional Impression: Elevated blood pressure reading Disposition: HOME / SELF CARE / HOMELESS Condition: STABLE Referrals: MARTHA ROBLES (PCP) Patient Instructions: Dental Caries, Dental Pain, [id number] Additional Instructions: As discussed, you need to see a dentist for definitive management of your current symptoms and dental concerns. Take the full course of antibiotics prescribed today, unless otherwise instructed by whichever dentist you choose to see. Please return to the emergency department if you develop new symptoms or your pain becomes unmanageable at home. Additionally, on the community resources list, there are free clinics where you can have your elevated blood pressure addressed and treated, if necessary. Scripts Amoxicillin/Potassium Clav (AUGMENTIN 875-125 TABLET) 1 Each Tablet 1 TAB PO BID for dental infection for 10 Days, #19 TAB 0 Refills Prov: DECLAN DOWNS 04/27/21 Attending Signature Attending Signature I have reviewed the PA/SOFTWARE TEST ANALYST's note and plan of care. I was available for consultation as needed during the patient's visit in the emergency department. I agree with the clinical impression, plan, and disposition. (NADYA MENA DO) DECLAN DOWNS Apr 27, 2021 21:54 NADYA MENA DO Apr 27, 2021 22:17
[2021-04-27] MEDS: AMOXICILLIN/K CLAV 875/125MG TABLET. PO ONE (22:00)
[2021-04-28] MEDS ORDERED: CHLO15MO2 PO (06:30)
[2021-04-28] MEDS ORDERED: PRED20TA PO (06:30)
== END 2021-04-27 22:13 | disposition home or self-care (01) ==
LOC: ER 21:28
DX: K02.9 Dental caries, unspecified (principal); R03.0 Elevated blood-pressure reading, without diagnosis of hypertension; F17.210 Nicotine dependence, cigarettes, uncomplicated
CPT/HCPCS: 99283

== ENCOUNTER 2021-04-28 05:29 | Emergency (ER) | payer OTHER ==
[~2021-04-28] VITALS: Ht 165.1 cm; Wt 56.0 kg
[2021-04-28 05:48] VITALS: BP 183/93
[2021-04-28] MEDS ORDERED: PRED20TA PO (06:30)
[2021-04-28] MEDS ORDERED: CHLO15MO2 PO (06:30)
--- NOTE | 2021-04-28 06:31 | PHYS DOC ---
Past History Past Medical History: No Pertinent History Additional Past Medical Histor: PTSD Past Surgical History: No Surgical History Smoking: Cigarettes Alcohol Use: None Drug Use: None General Adult EDM: Chief Complaint: DENTAL PROBLEM HPI: HPI: 61-year-old female returns the emergency room with dental pain and facial swelling. She came back because when she woke up this morning the swelling was worse. The last time she had an infection like this steroids and Peridex were helpful. She is wondering if she can get these prescriptions as well in addition to her antibiotic. She has no other complaints this time. Review of Systems: Review of Systems: Constitutional: Denies fever or chills Eyes: Denies change in visual acuity HENT: Facial swelling, dental infection. Respiratory: Denies cough or shortness of breath Cardiovascular: Denies chest pain or edema GI: Denies abdominal pain, nausea, vomiting, bloody stools or diarrhea : Denies dysuria Musculoskeletal: Denies back pain or joint pain Integument: Denies rash Neurologic: Denies headache, focal weakness or sensory changes Endocrine: Denies polyuria or polydipsia Lymphatic: Denies swollen glands Psychiatric: Denies depression or anxiety Allergies: Allergies: Allergies Coded Allergies Type Severity Reaction Last Updated Verified No Known Drug Allergies 04/28/21 No Physical Exam: PE: Constitutional: Well developed, well nourished, no acute distress, non-toxic appearance. [] HENT: Normocephalic, atraumatic, bilateral external ears normal, oropharynx moist, no oral exudates, nose normal. Poor dentition, swelling of the left upper pelvis without palpable abscess. [] Eyes: PERRLA, EOMI, conjunctiva normal, no discharge. [] Neck: Normal range of motion, no tenderness, supple, no stridor. [] Cardiovascular: Heart rate regular rhythm, no murmur [] Lungs & Thorax: Bilateral breath sounds clear to auscultation [] Abdomen: Bowel sounds normal, soft, no tenderness, no masses, no pulsatile masses. [] Skin: Warm, dry, no erythema, no rash. [] Back: No tenderness, no CVA tenderness. [] Extremities: No tenderness, no cyanosis, no clubbing, ROM intact, no edema. [] Neurologic: Alert and oriented X 3, normal motor function, normal sensory function, no focal deficits noted. [] Psychologic: Affect normal, judgement normal, mood normal. [] Current Patient Data: Vital Signs: Vital Signs Date Time Temp Pulse Resp B/P (MAP) Pulse Ox O2 Delivery O2 Flow Rate FiO2 04/28/21 05:48 98.6 94 18 183/93 (123) 100 EKG: EKG: [] Radiology/Procedures: Radiology/Procedures: [] Heart Score: C/O Chest Pain: N/A Risk Factors: Risk Factors: DM, Current or recent (<one month) smoker, HTN, HLP, family history of CAD, obesity. Risk Scores: Score 0 - 3: 2.5% MACE over next 6 weeks - Discharge Home Score 4 - 6: 20.3% MACE over next 6 weeks - Admit for Clinical Observation Score 7 - 10: 72.7% MACE over next 6 weeks - Early Invasive Strategies Course & Med Decision Making: Course & Med Decision Making Pertinent Labs and Imaging studies reviewed. (See chart for details) The patient exam is consistent with dental infection. She is working to get into the dental school to have the rest of her teeth removed and go to dentures. I believe her request for steroids and Peridex mouthwash is reasonable. I have prescribed these. She is stable for discharge at this time. [] Dragon Disclaimer: Dragon Disclaimer: This electronic medical record was generated, in whole or in part, using a voice recognition dictation system. Departure Departure: Impression: Primary Impression: Infected dental caries Disposition: HOME / SELF CARE / HOMELESS Condition: STABLE Referrals: MARTHA ROBLES (PCP) Patient Instructions: Dental Caries Scripts Prednisone (PREDNISONE) 20 Mg Tablet 2 TAB PO DAILY for facial swelling for 5 Days, #10 TAB Prov: MIGUEL ANGEL SALAZAR DO 04/28/21 Chlorhexidine Gluconate (PERIDEX) 15 Ml Mouthwash 15-30 ML PO TID for dental infection for 8 Days, #473 ML 0 Refills Prov: MIGUEL ANGEL SALAZAR DO 04/28/21 MIGUEL ANGEL SALAZAR DO Apr 28, 2021 06:31
== END 2021-04-28 06:45 | disposition home or self-care (01) ==
LOC: ER 05:29
DX: K02.9 Dental caries, unspecified (principal); F17.210 Nicotine dependence, cigarettes, uncomplicated
CPT/HCPCS: 99283-25

== ENCOUNTER → 2021-10-05 | Outpatient (CLI) | payer OTHER ==
--- NOTE | 2021-10-05 15:44 | RAD ---
EXAM: XR CHEST 2V 10/05/2021 1:18 PM CLINICAL INDICATION: Chronic cough, sometimes productive COMPARISON: Chest radiograph 03/02/2017 TECHNIQUE: PA and lateral views of the chest FINDINGS: The heart and mediastinum are normal. Lungs are well-expanded and clear. No consolidatio n, pleural effusion, or pneumothorax. Pulmonary vascularity is normal. Mild degenerative disc diseas e in the thoracic spine. IMPRESSION: Normal chest. Electronically signed by: Felicia Calderón MD (10/05/2021 3:41 PM) [id number]
== END ==
LOC: RAD 13:05
PROVIDERS: ATTEND Nurse Practitioner Family
DX: M51.34 Other intervertebral disc degeneration, thoracic region (principal); Z68.22 Body mass index [BMI] 22.0-22.9, adult
CPT/HCPCS: 71046